=== PATIENT | female | born 1950 | race Hispanic/Latino ===

== ENCOUNTER 2017-07-29 05:33 | Day surgery (SDC) | payer OTHER, MEDICARE ==
[2017-07-27 11:59] LABS: HEMATOCRIT 39.4 % (36-48); LYMPHOCYTES % (AUTO) 32.7 % (21.0-51.0); MEAN CORPUSCULAR HEMOGLOBIN 31.5 pg (27.0-33.0); MEAN CORPUSCULAR HGB CONC 34.9 g/dL (32.0-36.0); MEAN CORPUSCULAR VOLUME 90.3 fL (79-99); MONOCYTES % (AUTO) 6.9 % (3.0-13.0); NEUTROPHILS % (AUTO) 58.4 % (40.0-77.0); PLATELET COUNT (AUTO) 250 K/uL (130-400); RED BLOOD CELL COUNT(AUTO) 4.36 MIL/uL (4.00-5.50); RED CELL DISTRIBUTION WIDTH 14.3 % (11.0-15.5); WHITE BLOOD COUNT (AUTO) 10.9 K/uL (4.8-10.8)
[2017-07-27 12:05] LABS: CREATININE 0.8 mg/dL (0.5-1.5); POTASSIUM 3.7 mmol/L (3.5-5.1)
[2017-07-27 12:15] VITALS: BP_SYST 67; BP_SYST 68; BP_DIAS 34; BP_DIAS 48
[2017-07-27 12:21] LABS: INR 1.04 (0.85-1.15); PARTIAL THROMBOPLASTIN TIME 28.4 SEC (26.3-35.5); PROTHROMBIN TIME 10.9 SEC (9.6-11.6)
[2017-07-27 12:48] VITALS: BP_SYST 71; BP_SYST 78; BP_DIAS 54; BP_DIAS 55
[2017-07-29] VITALS (12 sets, daily range): BP systolic 76–100; BP diastolic 40–64
[~2017-07-29] VITALS: Ht 147.3 cm; Wt 51.3 kg
[~2017-07-29 05:33] MED LIST: ALPR-409 PO; ATOR40TA71 PO; CARV6.25 PO; CELE-84 PO; DEXT-199 PO; EMPA1TAB21 PO; ESCI10TA54 PO; FLUC100T8 PO; FURO40TA5 PO; GABA-529 PO; INSU100I13 SQ; PANT40TA25 PO; PROC10TA13 PO; RAMI2.5C15 PO; SITA100T12 PO; TRAM-355 PO; TRAZ-187 PO; VITAMIN B12 PO; albuterol IH
[2017-07-29] MEDS ORDERED: CEFAZOLIN SODIUM 1 GM VIAL IVP SCH (06:00)
[2017-07-29] MEDS ORDERED: SODIUM CHLORIDE 0.9% 1000ML 1,000 ML IV SCH (06:00)
[2017-07-29] MEDS ORDERED: VANCOMYCIN 1GM+NS 250ML 250 ML IV SCH (07:45)
[2017-07-29] MEDS ORDERED: BUPIVACAINE/PF 0.25% 30ML VIAL IJ ONE (08:57)
[2017-07-29] MEDS ORDERED: LIDOCAINE HCL-MPF 2% 5ML VIAL ONE (08:57)
[2017-07-29] MEDS ORDERED: VANCOMYCIN 1GM+NS 250ML 250 ML IV ONE ×2 (08:58→08:59)
[2017-07-29] MEDS ORDERED: LIDOCAINE HCL 2% 20ML ONE (08:58)
[2017-07-29] MEDS ORDERED: MEPERIDINE-PF 25 MG/ML SYG ONE (09:32)
[2017-07-29] MEDS ORDERED: MIDAZOLAM HCL 1 MG/ML 2ML VIAL ONE (09:33)
[2017-07-29] MEDS ORDERED: ACETAMINOPHEN-CODEINE 300/30MG TAB PO PRN ×2 (11:15)
[2017-07-29] MEDS ORDERED: ACETAMINOPHEN 325 MG TAB PO PRN (11:15)
[2017-07-29] MEDS ORDERED: ONDANSETRON HCL MDV 20ML 2 MG/ML VIAL IVP STA (11:27)
[2017-07-29] MEDS ORDERED: DiphenhydrAMINE HCL 50 MG/ML VIAL IV STA (11:27)
[2017-07-29] MEDS ORDERED: DiphenhydrAMINE HCL 50 MG/ML VIAL IV ONE (13:00)
== END 2017-07-29 14:40 | disposition home or self-care (01) ==
LOC: DAH 05:33
PROVIDERS: ATTEND Internal Medicine Cardiovascular Disease
DX: Z45.02 Encounter for adjustment and management of automatic implantable cardiac defibrillator (principal); I42.0 Dilated cardiomyopathy; F32.9 Major depressive disorder, single episode, unspecified; Z82.49 Family history of ischemic heart disease and other diseases of the circulatory system; Z79.899 Other long term (current) drug therapy; Z88.0 Allergy status to penicillin; Z88.8 Allergy status to other drugs, medicaments and biological substances; E11.9 Type 2 diabetes mellitus without complications; M79.1 Myalgia
CPT/HCPCS: 33264; 36415; 80048; 82948 ×2; 85025; 85610; 85730; 93005; A4606; C1882; J1644; J2175; J2250; J3370 ×2; J3490 ×3; 99156; 99157; J1200

== ENCOUNTER 2018-02-19 18:25 | Emergency (ER) | payer OTHER, MEDICARE ==
[~2018-02-19 18:25] MED LIST changes: -ALPR-409 PO; -CELE-84 PO; +CYAN500 PO; +CYCL30DR OP; -DEXT-199 PO; -EMPA1TAB21 PO; -ESCI10TA54 PO; +ESCI20TA36 PO; -FLUC100T8 PO; +FURO20TA4 PO; -FURO40TA5 PO; -GABA-529 PO; -INSU100I13 SQ; +POTA10CA44 PO; -PROC10TA13 PO; -RAMI2.5C15 PO; +RAMI2.5C16 PO; +SERT50TA12 PO; -SITA100T12 PO; +SPIR25TA PO; +SUCR1TAB2 PO; -TRAM-355 PO; -TRAZ-187 PO; -VITAMIN B12 PO; -albuterol IH
[2018-02-19 18:58] LABS: BILIRUBIN,URINE Negative (NEGATIVE); COLOR,URINE Dark Yellow (YELLOW); GLUCOSE, URINE (UA) TRACE mg/dL (NEGATIVE); KETONES,URINE 15 mg/dL (NEGATIVE); LEUKOCYTE ESTERASE ,URINE Negative (NEGATIVE); NITRATE,URINE Negative (NEGATIVE); OCCULT BLOOD,URINE Negative (NEGATIVE); PH,URINE 5.5 (5.0-8.0); PROTEIN,URINE POS 2+ (NEGATIVE)
[2018-02-19 18:59] LABS: APPEARANCE,URINE Clear (CLEAR)
[2018-02-19] MEDS ORDERED: ONDANSETRON HCL 4 MG/2 ML VIAL ONE ×2 (19:13→20:47)
[2018-02-19 19:15] LABS: BASOPHILS % (AUTO) 0.5 % (0.0-5.0); HEMATOCRIT 46.1 % (36-48); LYMPHOCYTES % (AUTO) 14.2 % (21.0-51.0); MEAN CORPUSCULAR HEMOGLOBIN 29.2 pg (27.0-33.0); MEAN CORPUSCULAR HGB CONC 31.8 g/dL (32.0-36.0); MEAN CORPUSCULAR VOLUME 91.8 fL (79-99); MONOCYTES % (AUTO) 1.6 % (3.0-13.0); NEUTROPHILS % (AUTO) 83.7 % (40.0-77.0); NUCLEATED RED BLOOD CELLS 0.1 % (0.0-0.19); PLATELET COUNT (AUTO) 262 K/uL (130-400); RED BLOOD CELL COUNT(AUTO) 5.02 MIL/uL (4.00-5.50); RED CELL DISTRIBUTION WIDTH 14.8 % (11.0-15.5); WHITE BLOOD COUNT (AUTO) 8.8 K/uL (4.8-10.8)
[2018-02-19 19:18] LABS: BACTERIA,URINE Rare /HPF (None Seen); MUCUS,URINE Few LPF (None Seen); RBC,URINE None Seen /HPF (0-1); WBC,URINE 0-1 /HPF (0-1)
[2018-02-19 19:26] LABS: CREATININE 0.8 mg/dL (0.5-1.5)
[2018-02-19 19:28] LABS: INR 1.1 (0.85-1.15); PARTIAL THROMBOPLASTIN TIME 26.9 SEC (26.3-35.5); PROTHROMBIN TIME 11.5 SEC (9.6-11.6)
[2018-02-19 19:30] LABS: ALBUMIN 3.5 g/dL (3.5-5.0); TOTAL PROTEIN, SERUM 7.4 g/dL (6.0-8.3)
[2018-02-19] MEDS ORDERED: HYOSCYAMINE SULFATE 0.125 MG TAB.SUBL SL ONE (21:46)
[2018-02-19] MEDS ORDERED: SODIUM CHLORIDE 0.9% 1000ML 1,000 ML IV ONE (21:53)
== END 2018-02-19 22:39 | disposition home or self-care (01) ==
LOC: EDH 18:25
DX: A09 Infectious gastroenteritis and colitis, unspecified (principal); E86.0 Dehydration; I11.0 Hypertensive heart disease with heart failure; I50.9 Heart failure, unspecified; K21.9 Gastro-esophageal reflux disease without esophagitis; E78.5 Hyperlipidemia, unspecified; Z90.49 Acquired absence of other specified parts of digestive tract; Z90.710 Acquired absence of both cervix and uterus; Z88.1 Allergy status to other antibiotic agents; Z88.8 Allergy status to other drugs, medicaments and biological substances
CPT/HCPCS: 36415; 80053; 81001; 82150; 82550; 83690; 84484; 85025; 85610; 85730; 87804 ×2; 93005; 96361; 96374; 96376; 99284; J2405 ×2; J7030